=== PATIENT | female | born 1980 | race Caucasian/White ===

== ENCOUNTER → 2018-11-22 09:33 | Outpatient (CLI) | payer OTHER, SELFPAY ==
[2018-11-22 12:25] LABS: Absolute Neutrophil Count 2.5 X10^3/uL (2.0-7.7); Basophil# 0.05 X10^3/uL; Eosinophils% 3.9 % (0-5); Hematocrit 37.6 % (37-47); Hemoglobin 12.3 g/dl (12.0-15.0); Mean Corp Hgb Conc 32.7 g/gl (32-36); Mean Corpuscular Hgb 27.5 pg (27.0-32.0); Mean Corpuscular Volume 84.1 fL (81-99); Mean Platelet Vol. 12.3 fl (6.2-12.0); Monocyte# 0.42 X10^3/uL; Monocyte% 8.2 % (0-10); Neutrophil # 2.46 X10^3/uL (2.7-7.7); Neutrophil % 47.9 % (47-70); Platelet Count 234 K/mm3 (150-450); RBC Distribution Width CV 12.6 % (11.6-14.6); RBC Distribution Width SD 38.6 fl (35.1-43.9); Red Blood Count 4.47 M/mm3 (4.2-5.4); White Blood Count 5.1 K/mm3 (4.4-11.0)
[2018-11-22 12:27] LABS: POSITIVE COUNT NO; POSITIVE DIFFERENTIAL NO; POSITIVE MORPHOLOGY NO
[2018-11-22 12:32] LABS: Vitamin B12 1108 pg/mL (211-911); Vitamin D,25 Hydroxy 21.3 ng/mL (29.95-100.01)
[2018-11-22 12:35] LABS: ALB/GLOB Ratio 1.2 RATIO (0.9-2.4); AST(SGOT) 17 U/L (15-37); Alanine Aminotransfer ALT/SGPT 21 U/L (13-56); Alkaline Phosphatase 76 U/L (45-117); Anion Gap 6 (5-15); BUN 15 mg/dL (7-18); BUN/Creat Ratio 16.5 RATIO (10-20); Calcium,Total 8.9 mg/dL (8.5-10.1); Chloride 107 mmol/L (98-107); Creatinine, Serum 0.91 mg/dL (0.55-1.02); EST Glomerular Filtration Rate 74 mL/min (>60); Est Glom Filt Rate - Afr Amer 90 mL/min (>60); Ferritin 8 ng/mL (8-252); Free T3 2.5 pg/mL (2.18-3.98); Globulin 3.4 g/dL (2.2-4.2); Glucose 89 mg/dL (74-106); Iron 59 ug/dL (50-170); Protein, Total 7.4 g/dL (6.4-8.2); Sodium Level 141 mmol/L (136-145); T4 Free Direct 0.97 ng/dL (0.76-1.46); Thyroid Stim Hormone (TSH) 1.43 uIU/mL (0.358-3.74)
[2018-11-24 22:37] LABS: Thyroid Peroxidase AB 10 IU/mL (0-34)
== END ==
PROVIDERS: Family Provider Family Medicine; PCP Family Medicine; Visit Provider Family Medicine
DX: E03.9 Hypothyroidism, unspecified (principal)
CPT/HCPCS: 36415; 80053; 82306; 82607; 82728; 83540; 84439; 84443; 84481; 85025; 86376

== ENCOUNTER 2021-06-04 18:59 | Emergency (ER) | payer OTHER, SELFPAY ==
[2021-06-04 19:00] VITALS: BP 120/95; PULSE 74; RESP 16; TEMP 36.8; O2SAT 99; BMI 28.3
--- NOTE | 2021-06-04 20:16 | RAD_ITS ---
HISTORY: Dyspnea EXAMINATION/TECHNIQUE: XR Chest 1 View: Portable upright AP chest x-ray COMPARISON: 12/02/11 FINDINGS: LINES/DEVICES: None. LUNGS: No consolidation, edema or effusion. No pneumothorax. MEDIASTINUM AND CARDIOVASCULAR STRUCTURES: Cardiac silhouette not enlarged. Central airways and mediastinal contour are unremarkable. BONES AND SOFT TISSUES: No acute bony abnormalities. RAD/Chest 1 View (Portable) IMPRESSION: No radiographic evidence of acute cardiopulmonary disease. at 2105 Reported and signed by: Manolo Rutledge MD Electronically Signed: Manolo Rutledge MD at 21:04 EDT Tel , Service support ,
--- NOTE | 2021-06-04 20:21 | EDS_ITS ---
HPI History of Present Illness Chief Complaint: Dizziness Informant: patient Onset/Context/Timing Onset: Days (3) Context: Gradual Onset Timing: Continuous Quality: Lightheaded, shaking Location: Generalized Worsened by: Nothing Relieved by: Nothing Narrative Narrative: Patient presents with dizziness that has been getting worse over the past 3 days. Patient states it has been constant. Patient states she feels lightheaded. Patient also states that she feels like she has shaking even though she has no tremors and does not see herself shaking. Patient admits to some increasing fatigue and shortness of breath. Patient was diagnosed with COVID-19 on 05/21/2021. Patient denies any fevers or chills. Patient denies any cough but admits to some mild shortness of breath. Patient admits to nausea but denies any vomiting. Patient admits to headaches. [facility] Medical History (Updated 06/04/21 @ 21:[address] Tushar Rodriguez DO) Anemia Hemorrhoids Home Medications ON GAURD ESSENTIAL OILS PO 08/23/19 [History Last Taken Unknown] elderberry fruit 460 mg-elderberry flower 115 mg capsule cap PO cap 08/23/19 [History Last Taken Unknown] ergocalciferol (vitamin D2) 1,250 mcg (50,000 unit) capsule PO #12 cap 08/23/19 [History Last Taken Unknown] multivitamin,[id number]-[id number]-tnktxxkn 1 tab PO DAILY 08/23/19 [History Last Taken Unknown] azithromycin 250 mg PO DAILY 06/04/21 [History Last Taken Unknown] prednisone 20 mg PO DAILY 06/04/21 [History Last Taken Unknown] Allergy/AdvReac Type Severity Reaction Status Date / Time No Known Allergies Allergy Verified 06/04/21 19:02 Surgical History History of tonsillectomy Social History Smoking Status: Never smoker alcohol intake: current alcohol intake frequency: holidays/special occasions only Alcohol type: beer, wine, hard liquor and other ROS ROS ED Constitutional Constitutional ED: Denies chills or fever(s) Eyes Eyes: Denies blurry vision or change in vision ENT ENT ED: Denies rhinorrhea or sore throat Cardiovascular Cardiovascular: Denies chest pain or palpitations Respiratory/Chest Respiratory/Chest: Reports dyspnea; Denies cough Gastrointestinal Gastrointestinal: Reports nausea; Denies vomiting Genitourinary Genitourinary ED: Denies dysuria or hematuria Musculoskeletal Musculoskeletal: Denies back pain or neck pain Integumentary Denies abscess or rash Neurologic Neurologic: Reports headache(s); Denies weakness Allergic/Immunologic Allergic/Immunologic ED: Denies mouth swelling or urticaria EXAM Physical Exam Const Vital Signs: 06/04/21 19:00 Temperature 98.3 F Temperature Source Temporal Pulse Rate 74 Respiratory Rate 16 Blood Pressure 120/95 H Blood Pressure Mean 103 Pulse Ox 99 Oxygen Delivery Method Room Air Positive well nourished and well developed General Appearance ED: well developed HEENT Reports moist mucous membranes Neck supple and no JVD Resp normal respiratory effort and clear to auscultation bilaterally Cardio regular rate, regular rhythm and no murmurs GI normal to inspection, nondistended, normoactive bowel sounds and non-tender Palpation: soft Extremity normal to inspection General Extremety ED: Negative for edema or tenderness General Extremity: Negative for edema Neuro oriented x3, CN's II-XII intact bilaterally and no sensory deficits noted Sensorium / Orientation: alert Motor Exam: strength 5/5 throughout Psych mental status grossly normal Skin no rashes or lesions noted MDM MDM MDM Narrative Medical decision making narrative: Patient was given IV fluids here. CBC and comprehensive metabolic profile were obtained and were within normal limits. Urinalysis does not show any evidence of urinary tract infection. Serum hCG was negative. Portable 1 view chest x-ray was obtained. On my interpretation, lung senior are clear. There is normal cardiac silhouette. Bony thorax is normal. There is no acute process noted. Radiologist also interpreted the x-ray and agrees. Patient is feeling better on reevaluation. Patient was instructed to continue Tylenol and ibuprofen as needed for any aches or fevers. Patient was instructed to continue drinking fluids. Patient was instructed to follow-up with her primary care physician in 5 to 7 days. Patient and spouse understood and were agreeable with the plan. All questions were answered. Lab Data Attestation: I reviewed the patient's lab results. Labs: Laboratory Results - last 24 hr 06/04/21 06/04/21 06/04/21 19:45 20:26 20:26 WBC 10.7 RBC 4.55 Hgb 12.2 Hct 37.8 MCV 83.1 MCH 26.8 L MCHC 32.3 RDW Std Deviation 39.2 RDW Coeff of Manolo 13.1 Plt Count 289 MPV 12.1 H Immature Gran % (Auto) 0.500 Neut % (Auto) 81.9 H Lymph % (Auto) 12.9 L Bel[place]ami % (Auto) 3.8 Eos % (Auto) 0.4 Baso % (Auto) 0.5 Absolute Neuts (auto) 8.8 H Absolute Lymphs (auto) 1.38 Nucleated RBC % 0 Sodium 142 Potassium 3.6 Chloride 108 H Carbon Dioxide 27.0 Anion Gap 7 BUN 11 Creatinine 0.84 Estim Creat Clear Calc 75.12 Est GFR (MDRD) Af Amer 97 Est GFR (MDRD) Non-Af 80 BUN/Creatinine Ratio 13.1 Glucose 120 H Calcium 9.2 Total Bilirubin 0.20 AST 14 L ALT 21 Alkaline Phosphatase 84 Total Protein 7.3 Albumin 3.8 Globulin 3.5 Albumin/Globulin Ratio 1.1 Serum , Qual Urine Color Yellow Urine Clarity Sl. Cloudy Urine pH 7.0 Ur Specific [place] 1.005 Urine Protein Negative Urine Glucose (UA) Normal Urine Ketones Negative Urine Occult Blood Negative Urine Nitrite Negative Urine Bilirubin Negative Urine Urobilinogen Normal Ur Leukocyte Esterase Negative Urine RBC 0 SEEN Urine WBC 0 SEEN Ur Squamous Epith Cells 0-5 SEEN Calcium Oxalate Crystal RARE Amorphous Sediment 2+ PHOS Urine Bacteria RARE Urine Mucus 0 SEEN 06/04/21 20:26 WBC RBC Hgb Hct MCV MCH MCHC RDW Std Deviation RDW Coeff of Manolo Plt Count MPV Immature Gran % (Auto) Neut % (Auto) Lymph % (Auto) Beltrami % (Auto) Eos % (Auto) Baso % (Auto) Absolute Neuts (auto) Absolute Lymphs (auto) Nucleated RBC % Sodium Potassium Chloride Carbon Dioxide Anion Gap BUN Creatinine Estim Creat Clear Calc Est GFR (MDRD) Af Amer Est GFR (MDRD) Non-Af BUN/Creatinine Ratio Glucose Calcium Total Bilirubin AST ALT Alkaline Phosphatase Total Protein Albumin Globulin Albumin/Globulin Ratio Serum , Qual NEGATIVE Urine Color Urine Clarity Urine pH Ur Specific [place] Urine Protein Urine Glucose (UA) Urine Ketones Urine Occult Blood Urine Nitrite Urine Bilirubin Urine Urobilinogen Ur Leukocyte Esterase Urine RBC Urine WBC Ur Squamous Epith Cells Calcium Oxalate Crystal Amorphous Sediment Urine Bacteria Urine Mucus Radiography Chest X-Ray - ED: 1 View, Read by ED Physician, Read by Radiologist and Normal Diagnostic Testing: Radiology Impression Chest X-Ray 06/04/21 20:16 IMPRESSION: No radiographic evidence of acute cardiopulmonary disease. at 2105 Reported and signed by: Manolo Rutledge MD Electronically Signed: Manolo Rutledge MD at 21:04 EDT Tel , Service support , Discharge Plan Triage Chief Complaint: Dizziness ED Provider: Tushar Rodriguez Dx/Rx/DC Orders Clinical Impression: COVID-19 Instructions: Coronavirus Disease 2019 (COVID-19): Overview Prescriptions: No Action ergocalciferol (vitamin D2) 50,000 unit capsule PO Qty: 12 RF: 0 ON GAURD ESSENTIAL OILS PO RF: 0 elderberry fruit and flower 460-115 mg capsule PO RF: 0 Complete Multivitamin Tablet 1 tab PO DAILY RF: 0 azithromycin 250 mg Capsule 250 mg PO DAILY RF: 0 prednisone 20 mg Tablet 20 mg PO DAILY RF: 0 Primary Care Provider: Rosita Love Referrals: Rosita Love DO [Primary Care Provider] - 5-7 Days Disposition Disposition: Home, Self Care
[2021-06-04 20:26] LABS: Mucous, Urine 0 SEEN /hpf (<or=2+); Red Blood Cells-Urine 0 SEEN /hpf (0-5); White Blood Cells 0 SEEN /hpf (0-5)
[2021-06-04 20:30] LABS: Color, Urine Yellow (Yellow); Glucose, Dipstick Normal (Normal); Ketone-Dipstick Negative (Negative); Leukocyte Esterase-Dipstick Negative /ul (Negative); Nitrite-Dipstick Negative (Negative); Occult Blood-Urine Negative /ul (Negative); Protein-Dipstick Negative (Negative); Specific Gravity, Urine 1.005 (1.002-1.030); Urine Bilirubin Dipstick Negative (Negative); Urine Clarity Sl. Cloudy (Clear); Urine Urobilinogen Normal (Normal)
[2021-06-04 20:34] LABS: Absolute Lymphocyte Count 1.38 X10^3/uL (0.83-4.51); Absolute Neutrophil Count 8.8 X10^3/uL (2.0-7.7); Basophil# 0.05 X10^3/uL; Basophil% 0.5 % (0-1); Eosinophil# 0.04 X10^3/uL; Eosinophils% 0.4 % (0-5); Hematocrit 37.8 % (37-47); Hemoglobin 12.2 g/dL (12.0-15.0); Lymphocyte # 1.38 X10^3/ul (0.83-4.51); Lymphocyte % 12.9 % (19-41); Mean Corp Hgb Conc 32.3 g/dL (32-36); Mean Corpuscular Hgb 26.8 pg (27.0-32.0); Mean Corpuscular Volume 83.1 fL (81-99); Mean Platelet Vol. 12.1 fl (6.2-12.0); Monocyte# 0.41 X10^3/uL; Monocyte% 3.8 % (0-10); NRBC Flagged by Analyzer 0 % (0-5); Neutrophil # 8.77 X10^3/uL (2.7-7.7); Neutrophil % 81.9 % (47-70); Platelet Count 289 K/mm3 (150-450); RBC Distribution Width CV 13.1 % (11.6-14.6); RBC Distribution Width SD 39.2 fl (35.1-43.9); Red Blood Count 4.55 M/mm3 (4.2-5.4); White Blood Count 10.7 K/mm3 (4.4-11.0)
[2021-06-04 20:40] LABS: Amorphous Sediment 2+ PHOS; Bacteria RARE /hpf (None Seen); Calcium Oxalate Crystals Ur RARE /hpf (<or=2+); Squamous Epithelial Cells - UA 0-5 SEEN /hpf (5-10)
[2021-06-04 20:56] LABS: Internal QC Validated? YES +Cl - CLEAR BKGD; Pregnancy, Serum, hCG Quali. NEGATIVE Negative
[2021-06-04 21:01] LABS: ALB/GLOB Ratio 1.1 RATIO (0.9-2.4); AST(SGOT) 14 U/L (15-37); Alanine Aminotransfer ALT/SGPT 21 U/L (13-56); Albumin, Serum 3.8 g/dL (3.2-5.0); Alkaline Phosphatase 84 U/L (45-117); Anion Gap 7 (5-15); BUN 11 mg/dL (7-18); BUN/Creat Ratio 13.1 RATIO (10-20); Calcium,Total 9.2 mg/dL (8.5-10.1); Chloride 108 mmol/L (98-107); Creatinine, Serum 0.84 mg/dL (0.55-1.02); EST Glomerular Filtration Rate 80 mL/min (>60); Est Glom Filt Rate - Afr Amer 97 mL/min (>60); Estimated Creatinine Clearance 75.12 ml/min; Globulin 3.5 g/dL (2.2-4.2); Glucose 120 mg/dL (74-106); Potassium 3.6 mmol/L (3.5-5.1); Protein, Total 7.3 g/dL (6.4-8.2); Sodium Level 142 mmol/L (136-145)
[2021-06-04 21:51] VITALS: BP 118/70; PULSE 97; RESP 18; O2SAT 97
== END 2021-06-04 21:52 | disposition home or self-care (01) ==
PROVIDERS: Emergency Provider Emergency Medicine; PCP Family Medicine
DX: U07.1 COVID-19 (principal); Z79.52 Long term (current) use of systemic steroids; Z79.899 Other long term (current) drug therapy
CPT/HCPCS: 71045; 80053; 81001; 84703; 85025; 99284; J7030; A4216

== ENCOUNTER → 2021-09-16 16:28 | Outpatient (CLI) | payer OTHER, SELFPAY ==
[2021-09-16 17:41] LABS: Absolute Lymphocyte Count 2.49 X10^3/uL (0.83-4.51); Absolute Neutrophil Count 3.5 X10^3/uL (2.0-7.7); Basophil# 0.07 X10^3/uL; Eosinophils% 2.9 % (0-5); Hematocrit 37.5 % (37-47); Lymphocyte # 2.49 X10^3/ul (0.83-4.51); Lymphocyte % 36.4 % (19-41); Mean Corpuscular Hgb 26.8 pg (27.0-32.0); Mean Corpuscular Volume 83.7 fL (81-99); Mean Platelet Vol. 12.2 fl (6.2-12.0); Monocyte# 0.58 X10^3/uL; Monocyte% 8.5 % (0-10); NRBC Flagged by Analyzer 0 % (0-5); Neutrophil # 3.48 X10^3/uL (2.7-7.7); Neutrophil % 50.9 % (47-70); Platelet Count 260 K/mm3 (150-450); RBC Distribution Width CV 12.3 % (11.6-14.6); RBC Distribution Width SD 37.3 fl (35.1-43.9); Red Blood Count 4.48 M/mm3 (4.2-5.4); White Blood Count 6.8 K/mm3 (4.4-11.0)
[2021-09-16 17:57] LABS: Vitamin B12 860 pg/mL (211-911); Vitamin D,25 Hydroxy 42.2 ng/mL
[2021-09-16 18:09] LABS: AST(SGOT) 17 U/L (15-37); Alanine Aminotransfer ALT/SGPT 25 U/L (13-56); Albumin, Serum 4.1 g/dL (3.2-5.0); Alkaline Phosphatase 90 U/L (45-117); Anion Gap 10 (5-15); BUN 16 mg/dL (7-18); BUN/Creat Ratio 18.7 RATIO (10-20); Calcium,Total 9.4 mg/dL (8.5-10.1); Chloride 104 mmol/L (98-107); Creatinine, Serum 0.86 mg/dL (0.55-1.02); EST Glomerular Filtration Rate 79 mL/min (>60); Est Glom Filt Rate - Afr Amer 95 mL/min (>60); Ferritin 7 ng/mL (8-252); Free T3 2.2 pg/mL (2.18-3.98); Globulin 4.1 g/dL (2.2-4.2); Glucose 94 mg/dL (74-106); Iron 46 ug/dL (50-170); Magnesium 2.3 mg/dL (1.6-2.6); Potassium 3.5 mmol/L (3.5-5.1); Protein, Total 8.2 g/dL (6.4-8.2); Sodium Level 140 mmol/L (136-145); T4 Free Direct 1.01 ng/dL (0.76-1.46)
[2021-09-18 15:08] LABS: Thyroid Peroxidase AB < 8 IU/mL (0-34)
[2021-09-18 16:22] LABS: Thyroglobulin Antibody < 1.0 IU/mL (0.0-0.9)
== END ==
PROVIDERS: PCP Family Medicine; Referring Provider Family Medicine; Visit Provider Family Medicine
DX: E03.9 Hypothyroidism, unspecified (principal); E55.9 Vitamin D deficiency, unspecified; E16.2 Hypoglycemia, unspecified; E61.1 Iron deficiency
CPT/HCPCS: 36415; 80053; 82306; 82607; 82728; 83540; 83735; 84439; 84443; 84481; 85025; 86376; 86800

== ENCOUNTER 2021-12-22 08:10 | Outpatient (CLI) | payer OTHER, SELFPAY ==
[2021-12-28 17:54] LABS: HPV APTIMA, High Risk Negative (Negative)
== END 2021-12-22 23:59 | disposition home or self-care (01) ==
LOC: LABSPEC 12-23 08:11
PROVIDERS: PCP Family Medicine; Visit Provider Nurse Practitioner Women's Health
DX: Z12.4 Encounter for screening for malignant neoplasm of cervix (principal)
CPT/HCPCS: 87624; 88175; G0145

== ENCOUNTER 2021-12-29 11:24 | Outpatient (CLI) | payer OTHER, SELFPAY ==
--- NOTE | 2021-12-29 11:27 | US_ITS ---
STUDY: ULTRASOUND OF THE FEMALE PELVIS - COMPLETE REASON FOR EXAM: Female, 41 years old. 10 year history of worsening pelvic pain. LMP: 12/22/2021. TECHNIQUE: Transabdominal and Transvaginal TECHNICAL QUALITY: Adequate. COMPARISON: Comparison is made with prior study of 01/02/2014. FINDINGS: The uterus is anteverted and is in a midline position. The uterus measures 9.8 cm x 6.2 cm x 4.8 cm. There is a Nabothian cyst of the cervix. The endometrium measures 5 mm in thickness, and is hyperechoic. There is no demonstrated endometrial mass. Heterogeneous appearance of the uterine echotexture. I.U.D. - The patient does not have an I.U.D. The right ovary is visualized. The right ovary measures 2.1 cm x 2.2 cm x 3.3 cm. A dominant follicle is seen within it. There is no visualized right adnexal mass or complex lesion. There is normal arterial and normal venous vascularity. The left ovary is visualized. The left ovary measures 1.7 cm x 1.9 cm x 1.9 cm. There is no left ovarian cyst or ovarian mass. There is no visualized left adnexal mass or complex lesion. There is normal arterial and normal venous vascularity. There is no fluid in the cul-de-sac. The pre void volume of the bladder was 642 ml. US/Transvaginal Non- IMPRESSION: Heterogeneous appearance of the uterine echotexture. A dominant follicle is seen in the right ovary. Electronically Signed: Marquise Olson MD at 13:06 EDT ,
--- NOTE | 2021-12-29 11:27 | US_ITS ---
STUDY: ULTRASOUND OF THE FEMALE PELVIS - COMPLETE REASON FOR EXAM: Female, 41 years old. 10 year history of worsening pelvic pain. LMP: 12/22/2021. TECHNIQUE: Transabdominal and Transvaginal TECHNICAL QUALITY: Adequate. COMPARISON: Comparison is made with prior study of 01/02/2014. FINDINGS: The uterus is anteverted and is in a midline position. The uterus measures 9.8 cm x 6.2 cm x 4.8 cm. There is a Nabothian cyst of the cervix. The endometrium measures 5 mm in thickness, and is hyperechoic. There is no demonstrated endometrial mass. Heterogeneous appearance of the uterine echotexture. I.U.D. - The patient does not have an I.U.D. The right ovary is visualized. The right ovary measures 2.1 cm x 2.2 cm x 3.3 cm. A dominant follicle is seen within it. There is no visualized right adnexal mass or complex lesion. There is normal arterial and normal venous vascularity. The left ovary is visualized. The left ovary measures 1.7 cm x 1.9 cm x 1.9 cm. There is no left ovarian cyst or ovarian mass. There is no visualized left adnexal mass or complex lesion. There is normal arterial and normal venous vascularity. There is no fluid in the cul-de-sac. The pre void volume of the bladder was 642 ml. US/Pelvic (Non ) IMPRESSION: Heterogeneous appearance of the uterine echotexture. A dominant follicle is seen in the right ovary. Electronically Signed: Marquise Olson MD at 13:06 EDT ,
== END 2021-12-29 23:59 | disposition home or self-care (01) ==
PROVIDERS: PCP Family Medicine; Referring Provider Nurse Practitioner Women's Health; Visit Provider Nurse Practitioner Women's Health
DX: R10.2 Pelvic and perineal pain (principal); N94.6 Dysmenorrhea, unspecified; N92.0 Excessive and frequent menstruation with regular cycle
CPT/HCPCS: 76830; 76856; 93976

== ENCOUNTER 2023-03-01 21:23 | Observation (INO) | payer OTHER, SELFPAY ==
[2023-02-23 16:13] LABS: Hematocrit 37.2 % (37-47); Hemoglobin 12.6 g/dL (12.0-15.0); Mean Corp Hgb Conc 33.9 g/dL (32-36); Mean Corpuscular Volume 85.5 fL (81-99); Mean Platelet Vol. 11.8 fl (6.2-12.0); Platelet Count 237 K/mm3 (150-450); RBC Distribution Width SD 37.5 fl (35.1-43.9); Red Blood Count 4.35 M/mm3 (4.2-5.4); White Blood Count 7.9 K/mm3 (4.4-11.0)
[2023-02-23 16:51] LABS: Magnesium 2.1 mg/dL (1.6-2.6)
[2023-03-01] VITALS (15 sets, daily range): BP systolic 93–119; BP diastolic 55–81; PULSE 58–81; RESP 12–18; TEMP 36.2–37.3; O2SAT 95–100; BMI 29.7; BMI 29.8
[2023-03-01 12:36] LABS: Internal QC Validated? YES +Cl - CLEAR BKGD; Pregnancy, Urine Negative Negative
[2023-03-01] MEDS: Magnesium 1 GM over 15 mins IV (12:44)
[2023-03-01] MEDS: Acetaminophen 500 MG Tablet 1000 MG PO (12:44)
[2023-03-01] MEDS: Celecoxib 200 MG Capsule 400 MG PO (12:44)
[2023-03-01] MEDS: Gabapentin 600 MG Tablet PO (12:44)
[2023-03-01 12:45] LABS: Bedside Glucose 117 mg/dL (74-106)
[2023-03-01] MEDS: dexAMETHasone 4 MG/ML Vial 8 MG IV (12:45)
[2023-03-01] MEDS: Phenazopyridine 95 MG Tablet 190 MG PO (12:45)
[2023-03-01] MEDS: Lactated Ringers 1,000 ML 40 ML IV (12:45)
--- NOTE | 2023-03-01 13:01 | HP.PCM_ITS ---
History and Physical Date of Admission: 03/01/23 Intake Vital Signs ? 02/23/2315:09 02/23/2315:10 Height 5 ft 3 in 5 ft 3 in Weight: 168 lb 4 oz ? BMI 29.7 ? BP 121/80 H ? Intake Visit Reasons:?TRHBS LO cysto Wedding Designer Required: No Is patient in pain?: No Allergies No Known Allergies Allergy (Verified 02/23/23 15:09) Medications multivitamin,pb-sioi-jrnlpbwj (Complete Multivitamin tablet) 1 tab PO DAILY 08/23/19 [History Confirmed 02/23/23] naproxen sodium 220 mg tablet (Aleve) 220 mg PO Q12H PRN Pain 02/22/23 [History Confirmed 02/23/23] Post menopausal: No : No PFSH Medical History? Anemia Anxiety Back pain Hemorrhoids Non-smoker Wears glasses Surgical History? History of tonsillectomy Hx of bilateral breast reduction surgery Family History? Mother Hypertension HyperlipidemiaFather Thyroid cancer Social History? household members:? spouse and children current occupational status:? 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 Never smoker alcohol intake:? current alcohol intake frequency: a few times a month substance use type:? does not use what type of physical activity do you participate in:? walking and aerobics frequency:? 3-4 times per week seatbelt use:? always do you feel safe at home:? Yes additional social history:? - Javier [facility] LO cysto Details: BERKLEY COTA is a 42 year old who presents for preop exam. She has ongoing pelvic pain x 14 years. She states that it started after giving to her last child 14 years ago. The pain starts on her left side and radiates to the right down her legs and also across her back. Her doctors have always told her that it is chronic constipation but she fleming not believe this is true. She has tried lysted and OCPs without success. Her menses are also very heavy. She bleeds through an ultra tampon and pad within a few hours. She also describes her pain episodes as feeling in shock and then when finally lets up she has a state of severe fatigue. She is unable to go in family vacations or participate in a lot of activities with her children. She state that this started out occurring every couple of months and now every other week or so.? She states that she is not a pill popper and does not really want to try other pills. ultrasound shows the following: STUDY: ? ULTRASOUND OF THE FEMALE PELVIS - COMPLETE REASON FOR EXAM: ? Female, 41 years old.? 10 year history of worsening pelvic pain. ? LMP:? 12/22/2021. TECHNIQUE: ? Transabdominal and Transvaginal TECHNICAL QUALITY: ? Adequate. COMPARISON: ? Comparison is made with prior study of 01/02/2014. FINDINGS: The uterus is anteverted and is in a midline position.? The uterus measures 9.8 cm x 6.2 cm x 4.8 cm.? There is a Nabothian cyst of the cervix.? The endometrium measures 5 mm in thickness, and is hyperechoic.? There is no demonstrated endometrial mass.? Heterogeneous appearance of the uterine echotexture. ? I.U.D. - The patient does not have an I.U.D. The right ovary is visualized.? The right ovary measures 2.1 cm x 2.2 cm x 3.3 cm.? A dominant follicle is seen within it.? There is no visualized right adnexal mass or complex lesion. There is normal arterial and normal venous vascularity. The left ovary is visualized.? The left ovary measures 1.7 cm x 1.9 cm x 1.9 cm.? There is no left ovarian cyst or ovarian mass.? There is no visualized left adnexal mass or complex lesion.? There is normal arterial and normal venous vascularity. There is no fluid in the cul-de-sac. The pre void volume of the bladder was 642 ml. US/Transvaginal Non- IMPRESSION: Heterogeneous appearance of the uterine echotexture. A dominant follicle is seen in the right ovary. ? History ? ? ? 3 ? Elective abortions ? Hx Para ? ? ? 2 ? Spontaneous abortions ? Hx # Term Pregnancies ? Ectopic pregnancies ? Hx # Pregnancies ? Multiple births ? # of living children ? ? ? 2 Past Pregnancies Del. Date Name GA/Weeks Outcome Route Bth Weight Infant Vaibhav Labor Lgth Anesthesia Del Locatn Provider FOB Unknown Elandria ? ? 2008 ? Unknown Zayden? ? 2010 ? ROS Const ROS Unobtainable: All systems reviewed & are unremarkable except as noted in H Resp Resp: Reports system reviewed and no additional complaints, except as documented; Denies cough GI GI: Reports as per HPI Psych Psych: Reports system reviewed and no additional complaints, except as documented Exam Const General: cooperative, healthy appearing, comfortable and no acute distress Resp Effort & Inspection: normal respiratory effort Skin General: no rashes or lesions noted Psych Appearance: grossly normal Speech and Movement: speech and movement normal Coding Level of Care Code Off vis,est,level 4 Diagnoses Menorrhagia? N92.0 Dysmenorrhea? N94.6 Pelvic pain? R10.2 Assessment and Plan Assessment and Plan (1) Menorrhagia: ?Status:?Acute (2) Dysmenorrhea: ?Status:?Acute (3) Pelvic pain: ?Status:?Acute Plan After discussing the patient's diagnosis and treatment plan options, patient wishes to proceed with surgical management.? I have discussed with the patient the risks, benefits, and alternatives of the procedure which include but are not limited to risks of anesthesia, bleeding, infection, possible damage to bowel, bladder, or surrounding vasculature which could lead to additional surgery to evaluate any complications.? Patient agrees to procedure and wishes to proceed.? ACOG/uptodate references given for additional information regarding procedure.? due to high suspicion for endometriosis, plan for total robotic hyst bs and cyst
--- NOTE | 2023-03-01 13:04 | PCM.DC ---
Discharge Instructions Diet Discharge Diet: No restrictions Activity May resume sexual activity in: 6 weeks Weight Bearing Status: Full weight bearing Dressing / Incision Call your doctor if your incision/area has: Continuous Slow Oozing, Sudden Increased Bleeding, Increased Pain/ Swelling, Increased Redness and Foul Smelling Discharge Call your doctor if you observe: Fever of 101 or Higher, Using more than 1 pad per hour, Shortness of breath, Chest pain and Uncontrolled pain Suture Line Care: Avoid Pulling/Pushing and Avoid Pinching/Bending Remove Dressing in: 1 week (if present) Cleanse incision/area with: Soap & Water and Keep Dressing Clean & Dry Follow Up Care Please Follow Up With: Araseli Brandon DO When: Call to make an appointment with your doctor for a postop visit in 2 and 6 weeks Test Results: Test results from this visit will be discussed in further detail at your follow-up appointment, if applicable. Discharge Plan Admission Primary Reason for Your Visit: hysterectomy Attending Provider: Araseli Brandon Primary Care Provider: Rosita Love Discharge Orders/Prescriptions Prescriptions: New oxycodone-acetaminophen [Percocet] 5-325 mg tablet 1 tab PO Q4H PRN (Reason: pain) 7 Days Qty: 30 0RF Rx Instructions: 1-2 tabs q 4 hrs as needed for pain naproxen 500 mg tablet 500 mg PO BID PRN (Reason: pain) Qty: 30 0RF Continued Complete Multivitamin Tablet 1 tab PO DAILY Held naproxen sodium [Aleve] 220 mg Tablet 220 mg PO Q12H PRN (Reason: Pain) Hold Instructions: Resume on 03/15/23. Referrals / Follow Up: Rosita Love DO [Primary Care Provider] - Disposition Disposition (needs filled in before D/C Order can be placed): Home, Self Care
[2023-03-01] MEDS: Cefazolin 2 GM in 0.9% Normal Saline 100 ML IV (13:13)
--- NOTE | 2023-03-01 13:50 | HYST_PTH ---
PATIENT: BERKLEY COTA LOC: MS3 U#:[id number] AGE/SX: 42/F ROOM: GA313 RE03/01/[address]: Dr. Araseli Brandon DO : 1980 BED: 1 DIS: 03/02/2023 SPEC #: [id number] RECD: 03/01/23 17:05 STATUS: YULI SOLORZANORosalva #: [id number] LES: 03/01/23 13:[address]: Araseli Brandon DEPT: SURGICAL PATHOLOGY RECD BY: Trenton Dumont ENTERED: 03/02/23 09:21 SP TYPE: HYSTERECT OTHR DR: Dr. Rosita Love DO Tissues: Uterus, NOS Procedures: Surgery Specimen Level V HEADER OPERATION: ERAS, total robotic hysterectomy, bilateral salpingectomy PRE-OP DIAGNOSIS: Menorrhagia, dysmenorrhea, pelvic pain TISSUE SUBMITTED: Uterus, cervix, bilateral fallopian tubes, left ovary MICROSCOPIC DIAGNOSIS Uterus, cervix, bilateral fallopian tubes and left ovary, hysterectomy, bilateral salpingectomy and left oophorectomy: Cervix ? chronic cystic cervicitis. Endometrium ? secretory endometrium. Myometrium ? focal adenomyosis. Bilateral fallopian tubes - no pathologic diagnosis. Left ovary ? physiologic follicular and corpus luteal cysts. Bilateral paratubal cysts. SJ:fay 03/03/2023 MICROSCOPIC DESCRIPTION Slides are reviewed. GROSS DESCRIPTION Received in fixative is one container labeled with the patient's name and designated uterus. The specimen consists of a uterus with attached cervix, attached right fallopian tube and paratubal cyst and attached left fallopian tube and left ovary. The uterus with cervix measures 11.0 x 8.5 x 6.0 cm and weighs 190 gm. The ectocervix is unremarkable. The endocervical canal measures 3.2 cm in length and is grossly unremarkable. The triangular endometrial cavity measures 5.0 x 4.0 cm. The velvety, reddish-rodriguez endometrium measures up to 0.3 cm in thickness. The myometrium measures 2.2 cm in average thickness and is free of mass lesions. The right paratubal cyst measures 2.0 cm in diameter and contains clear fluid. The right fallopian tube contains an unremarkable fimbrial end. The right fallopian tube measures 6.0 cm in length and 0.8 cm in diameter. The left fallopian tube is similar in appearance to the right fallopian tube and measures 5.0 x 0.8 cm. A paratubal cyst is also present similar in appearance to the right fallopian tube cyst. The cyst measures 1.0 cm in greatest dimension and contains clear fluid. The glistening rodriguez-yellow left ovary measures 3.5 x 2.2 x 1.7 cm. Serial sections reveal multiple cysts ranging in size from 0.2 to 1.2 cm and containing clear to bloody fluid. Bakeshop Cleaner sections are submitted in ten cassettes as follows: 1 - anterior cervix, 2 - posterior cervix, 3 & 4 - anterior uterine wall, 5 & 6 - posterior uterine wall, 7 - right fallopian tube and paratubal cyst, 8 - left fallopian tube and paratubal cyst, 9 & 10 - left ovary. / AM:fay 03/02/2023 TC:5 CPT: 62060
[2023-03-01] MEDS: Bupivacaine 0.25% 30 ML Vial (14:45)
[2023-03-01] MEDS: Lactated Ringers @ 70 MLS/HR 70 ML IV (14:45)
--- NOTE | 2023-03-01 14:51 | PCM.OPRPT ---
Report of Operation Date of Procedure: 03/01/23 Pre-Operative Diagnosis: pelvic pain , menorrhagia, failed conservative therapy Post-Operative Diagnosis: pelvic pain , menorrhagia, failed conservative therapy. left ovarian mass and ovarian torsion Surgery/Procedure Performed:: total robotic hysterectomy, bilateral salpingectomy, left oophorectomy, cystoscopy Description of Surgical Findings:: left ovarian mass and torsed ovary, normal uterus and fallopian tube on left, left fallopian tube mullerian cyst. Normal appearing bladder Surgeon: Araseli Brandon stem roller or crusher operator: Kimberly France Type of Anesthesia: General Anesthesiologist: Tushar North Specimen's removed: uterus, bilateral fallopian tubes, left ovary, cervix Estimated Blood Loss (mL): 20cc Description of Procedure: Reason for surgery: This is a 42-year-old WF who presented to my office with history of pelvic pain and heavy menstural bleeding. the planned procedure is for a robotic hysterectomy the risks benefits and alternatives were discussed with the patient the patient had a clear understanding of the procedure and a consent form was signed. Procedure: The patient was placed in the dorsal low lithotomy position and prepped and draped in the normal sterile fashion both abdominally and in the perineum. Her legs were placed in stirrups a Wise catheter was inserted into the urethra without difficulty. A weighted speculum was placed in the vagina and a single-tooth tenaculum was used to grasp the anterior lip of the cervix. A size 3 advincula uterine manipulator was inserted through the cervix without complication. It was then tied into place at the 2 and 10:00 locations on the cervix. Gloves were changed and attention was turned towards the abdomen. Approximately 23 cm above the pubic symphysis in the midline, and after Marcaine injection, a [8] mm incision was made. An 8 mm trocar was inserted through the laparoscope, then inserted into the abdomen under direct visualization using the laparoscope. Good abdominal placement was noted and no complications were appreciated. An air seal device was utilized to create pneumoperitoneum. At 12 cm lateral to the midline on the left and right sides 8 mm accessory ports were placed. Next a left upper quadrant 8 mm accountant assistant port site was placed. The patient was placed in steep Trendelenburg position. The robot was docked. The left ovary was noted to be torsed x 1 an easily resolved, however an irregular shaped firm mass was noted. When grasped with the prograsp device to untorse the ovary from the pedicle a cheesy material was expressed from the ovary resembling a dermoid cyst. The hysterectomy was initiated first by taking down fallopian tubes withe vessel sealer device. The right fallopian tube contained a small mullerian cyst. The round ligament on each side using the vessel sealer device. The peritoneum between the round ligament and the IP ligament on the left was opened using electrocautery and extended the length of the IP ligament. The IP ligament was then taken down using the vessel sealer device. These areas were freed without complication the broad ligament was then and taken down using the vessel sealer device. Next the bladder flap was taken down without complication. This was done using monopolar cautery to the level of the cervical vaginal junction. After the bladder flap was created, uterine vessels were then isolated and cauterized using the vessel sealer device and EndoShears. At this point the uterine vessels were taken down further starting from the ascending branch, dissecting along the edges of the cervix to the level of the cervical vaginal junction with hemostasis appreciated. The cervical vaginal junction was then using monopolar cautery in a circumferential pattern across the superior aspect of the cervix. The specimen was delivered through the vagina and sent to pathology. The remaining vaginal cuff was then closed using a V lock suture. This was performed in a running technique. Excellent hemostasis was obtained and good closure was noted. Irrigation was then performed. All operative sites were noted to be hemostatic. A cystoscopy was performed with a 70 degree cystoscope through the urethra into the bladder without complication. The bladder was instilled with approximately 250 cc of normal saline. Intraoperative images were made. Ureteral orifices and jets were identified. No suture material was appreciated in the bladder. The bladder was then drained and cystoscope was removed. The abdominal cavity was again examined using the laparoscope after the robot was undocked. All operative sites were noted to be hemostatic. The trochars were removed under direct visualization without complication and pneumoperitoneum was reduced. At this point the skin was then closed using 4-0 Monocryl subcuticular stitch and sealed with surgical glue. The patient tolerated the procedure well sponge lap and needle counts were correct x2 the patient was taken to the recovery room in stable condition. Grafts/Implants Used: none Complications none Admit VTE Documentation VTE Present on Admission: No VTE Mechan Device Prophylaxis: SCD's VTE Pharm Prophylaxis ordered?: No Procedures Urinary/Genital [id number]: [id number] TLH+BS/O <250gr uterus
[2023-03-01] MEDS: Ondansetron 4 MG/2 ML Vial IV (15:59)
[2023-03-01] MEDS: HYDROcodone Bitartrate/Apap 5/325 Tablet PO (18:53)
[2023-03-01] MEDS: Ondansetron 4 MG/2 ML Vial IM (18:54)
[2023-03-01] MEDS: Naproxen 500 MG Tablet PO (20:44)
--- NOTE | 2023-03-01 21:18 | SUR.PHASEII ---
AMBULATED TWICE SLOWLY w/ TWO ASSIST & C/O VERY PAINFUL, VOIDED, MEDICATED w/ PO PAIN MED, C/O VERY DIZZY & LIGHT-HEADED WITH ACTIVITY, BOTH PATIENT & REQUESTING TO STAY OVERNIGHT FOR PAIN MANAGEMENT & CLOSE OBSERVATION. DR SMITH NOTIFIED, ORDERED 23 HOUR OBS ADMIT.
[2023-03-01] MEDS: Acetaminophen 325 MG Tablet PO (23:58)
[2023-03-01] MEDS: oxyCODONE 5 MG Tablet PO (23:58)
[2023-03-02 02:00] VITALS: BP 115/67; PULSE 61; RESP 18; TEMP 36.7; O2SAT 96
[2023-03-02 06:49] LABS: Absolute Lymphocyte Count 1.83 X10^3/uL (0.83-4.51); Absolute Neutrophil Count 7.5 X10^3/uL (2.0-7.7); Basophil# 0.04 X10^3/uL; Basophil% 0.4 % (0-1); Eosinophil# 0.01 X10^3/uL; Eosinophils% 0.1 % (0-5); Hematocrit 37.8 % (37-47); Hemoglobin 12.8 g/dL (12.0-15.0); Lymphocyte # 1.83 X10^3/ul (0.83-4.51); Lymphocyte % 17.7 % (19-41); Mean Corp Hgb Conc 33.9 g/dL (32-36); Mean Corpuscular Hgb 29.2 pg (27.0-32.0); Mean Corpuscular Volume 86.1 fL (81-99); Mean Platelet Vol. 12.2 fl (6.2-12.0); Monocyte# 0.99 X10^3/uL; Monocyte% 9.6 % (0-10); NRBC Flagged by Analyzer 0 % (0-5); Neutrophil # 7.47 X10^3/uL (2.7-7.7); Platelet Count 229 K/mm3 (150-450); RBC Distribution Width CV 12.2 % (11.6-14.6); RBC Distribution Width SD 38.3 fl (35.1-43.9); Red Blood Count 4.39 M/mm3 (4.2-5.4); White Blood Count 10.4 K/mm3 (4.4-11.0)
--- NOTE | 2023-03-02 07:47 | PCM.PN.OB ---
Subjective Subjective Patient is laying in bed comfortably without complaints. She states that she slept on an off during the night. Requesting pain medication with breakfast and wants to go home. Objective Data Objective Data Vital Signs: Vital Signs Temp Pulse Resp BP Pulse Ox O2 Del Method O2 Flow Rate 98.1 F 61 18 115/67 96 Room Air 4 03/02/23 02:00 03/02/23 02:00 03/02/23 02:00 03/02/23 02:00 03/02/23 02:00 03/02/23 02:00 03/01/23 17:00 Oxygen Flow Rate (L/min) 4 Oxygen Delivery Method Room Air Weight: 168 lb 10.458 oz Body Mass Index (BMI) 29.8 Intake & Output: Intake and Output for Last 24 Hours 02/28/23 03/01/23 03/02/23 23:59 23:59 23:59 Intake Total 1672.83 / 1672.83 Output Total 500 / 500 Balance 1172.83 / 1172.83 Lab / Micro Data Result Diagrams: 03/02/23 06:08 Labs: Laboratory Results - last 24 hr 03/01/23 12:21: Urine Test Negative 03/01/23 12:27: POC Glucose 117 H 03/02/23 06:08: WBC 10.4, RBC 4.39, Hgb 12.8, Hct 37.8, MCV 86.1, MCH 29.2, MCHC 33.9, RDW Std Deviation 38.3, RDW Coeff of Manolo 12.2, Plt Count 229, MPV 12.2 H, Immature Gran % (Auto) 0.200, Neut % (Auto) 72.0 H, Lymph % (Auto) 17.7 L, [place] % (Auto) 9.6, Eos % (Auto) 0.1, Baso % (Auto) 0.4, Absolute Neuts (auto) 7.5, Absolute Lymphs (auto) 1.83, Nucleated RBC % 0 ROS Constitutional Constitutional: Reports systems reviewed and no addt'l complaints, except as documented Cardiovascular Cardiovascular: Denies chest pain, dizziness, dyspnea or irregular heart rhythm Respiratory/Chest Respiratory/Chest: Denies cough, pain on inspiration or shortness of breath at rest Gastrointestinal Gastrointestinal: Denies abdominal pain, nausea or vomiting Genitourinary Genitourinary: Denies burning urination Musculoskeletal Musculoskeletal: Denies muscle cramps, muscle spasms or muscle weakness Neurologic Neurologic: Denies confusion, dizziness, headache(s) or lack of coordination Psychiatric Psychiatric: Denies anxiety, behavioral changes or depression Physical Exam HEENT normocephalic Resp normal respiratory effort and normal air movement GI soft to palpation, non-tender and non-distended Rectal Exam: other Other Details: Incision is clean, dry, and intact no CVA tenderness Extremity normal to inspection General Extremity: edema bilateral (trace ) Assessment & Plan (1) Status post hysterectomy: COMMENT: left oophorectomy (intermittent torsed ovary) PLAN: patient is s/p TRH LSO, POD 1 1. routine ERAS protocol postop care- increase ambulation, encourage oral intake and oral control of pain. lovenox and scds for dvt prophylaxis, patient stable for discharge to home. (2) Dysmenorrhea: (3) Menorrhagia:
[2023-03-02] MEDS: Acetaminophen 325 MG Tablet PO (08:58)
[2023-03-02] MEDS: oxyCODONE 5 MG Tablet PO (08:59)
[2023-03-02 09:15] VITALS: BP 103/70; PULSE 65; RESP 16; TEMP 36.6; O2SAT 100
--- NOTE | 2023-03-02 10:18 | PHA.DC.MC ---
Pharmacy Service has performed discharge medication reconciliation and counseling for this patient. Instructed patient to hold home naproxen 220mg while taking 500mg. 1. OXYCODONE/ACETAMINOPHEN 5/325MG 1T PO Q4H PRN PAIN The patient's discharge medication list was reviewed for discrepancies and discrepancies were resolved. Home Medications multivitamin,[id number] (Complete Multivitamin tablet) 1 tab PO DAILY 08/23/19 naproxen sodium 220 mg tablet (Aleve) 220 mg PO Q12H PRN Pain 02/22/23 naproxen 500 mg tablet 500 mg PO BID PRN pain #30 tabs 03/01/23 oxycodone-acetaminophen 5 mg-325 mg tablet (Percocet) 1 tab PO Q4H PRN pain 7 days #30 tabs 03/01/23 The patient was counseled on the following discharge medications and changes in medications for homegoing were reviewed. The Reason for Use, instructions for use, and potential side effects were reviewed for all new medications. The patient's questions regarding all of their medications were answered. The patient was able to verbally demonstrate an understanding of their discharge medications.
== END 2023-03-02 10:39 | disposition home or self-care (01) ==
LOC: MS3 03-02 08:49 → SDC 03-02 10:56
PROVIDERS: Anesthesiology; Admitting Provider Obstetrics & Gynecology; PCP Family Medicine; Referring Provider Obstetrics & Gynecology; Visit Provider Obstetrics & Gynecology
PROC: 0UT90ZZ Resection of Uterus, Open Approach (ICD-10-PCS; CPT 58571; principal; 2023-03-01 13:30)
DX: N92.0 Excessive and frequent menstruation with regular cycle (principal); N94.6 Dysmenorrhea, unspecified; N83.12 Corpus luteum cyst of left ovary
CPT/HCPCS: 58571; S2900; 00840; 36415; 81025; 82962; 83735; 85025; 85027; 86850; 86900; 86901; 88307; 99221; J7030; J7120; G0378; J2405; J3475

== ENCOUNTER → 2025-01-09 | Outpatient (CLI) | payer OTHER, SELFPAY ==
[2025-01-09 12:48] LABS: Erythrocyte Sedimentation Rate 1 mm/hr (0-30)
[2025-01-09 12:52] LABS: Absolute Lymphocyte Count 2.07 X10^3/uL (0.83-4.51); Absolute Neutrophil Count 2.2 X10^3/uL (2.0-7.7); Basophil# 0.07 X10^3/uL; Basophil% 1.4 % (0-1); Eosinophil# 0.12 X10^3/uL; Eosinophils% 2.5 % (0-5); Hematocrit 40.4 % (37-47); Lymphocyte # 2.07 X10^3/ul (0.83-4.51); Lymphocyte % 42.5 % (19-41); Mean Corp Hgb Conc 34.7 g/dL (32-36); Mean Corpuscular Volume 83.6 fL (81-99); Mean Platelet Vol. 12.5 fl (6.2-12.0); Monocyte# 0.44 X10^3/uL; NRBC Flagged by Analyzer 0 % (0-5); Neutrophil # 2.16 X10^3/uL (2.7-7.7); Neutrophil % 44.4 % (47-70); Platelet Count 247 K/mm3 (150-450); RBC Distribution Width CV 11.9 % (11.6-14.6); RBC Distribution Width SD 36.3 fl (35.1-43.9); Red Blood Count 4.83 M/mm3 (4.2-5.4); White Blood Count 4.9 K/mm3 (4.4-11.0)
[2025-01-09 16:46] LABS: Free T3 2.8 pg/mL (2.18-3.98); Vitamin D,25 Hydroxy 33.1 ng/mL (30-100)
[2025-01-09 18:01] LABS: ALB/GLOB Ratio 1.5 RATIO (0.9-2.4); AST(SGOT) 24 U/L (<=31); Alanine Aminotransfer ALT/SGPT 18 U/L (<=34); Albumin, Serum 4.6 g/dL (3.5-5.0); Alkaline Phosphatase 76 U/L (35-104); Anion Gap 12 (5-15); BUN 11 mg/dL (4-19); BUN/Creat Ratio 12.3 RATIO (10-20); Calcium,Total 9.7 mg/dL (7.6-11.0); Carbon Dioxide 24.9 mmol/L (21.0-32.0); Chloride 104 mmol/L (98-108); Creatinine, Serum 0.89 mg/dL (0.70-1.20); EST Glomerular Filtration Rate 84 (>60); Glucose 92 mg/dL (70-99); Potassium 3.8 mmol/L (3.3-5.1); Protein, Total 7.6 g/dL (5.9-8.4); Sodium Level 141 mmol/L (133-145); Total Bilirubin 0.34 mg/dL (0.00-1.30)
[2025-01-09 18:03] LABS: CRP < 3.00 mg/L (0.0-3.0)
[2025-01-10 04:08] LABS: PROGESTERONE 0.3 ng/mL (.)
== END | disposition home or self-care (01) ==
LOC: BFHLAB 10:33
PROVIDERS: PCP Family Medicine; Visit Provider Family Medicine
DX: E03.9 Hypothyroidism, unspecified (principal); E55.9 Vitamin D deficiency, unspecified; R53.83 Other fatigue; R10.9 Unspecified abdominal pain
CPT/HCPCS: 36415; 80053; 82306; 82670; 84144; 84402; 84403; 84439; 84443; 84481; 84482; 85025; 85652; 86140; 86376; 86800